=== PATIENT | male | born 1950 | race Caucasian/White ===

== ENCOUNTER 2022-09-22 10:56 | Outpatient (CLI) | payer MEDICARE, BC, SELFPAY | END 2022-09-22 10:57 | disposition home or self-care (01) | LOC: MRI 11:01 | PROVIDERS: PCP Surgery; Visit Provider Internal Medicine | DX: C61 Malignant neoplasm of prostate (principal) | CPT/HCPCS: 72195 ==

== ENCOUNTER 2023-06-23 20:17 | Outpatient (CLI) | payer MEDICARE, BC, SELFPAY | END 2023-06-23 20:18 | disposition home or self-care (01) | LOC: SLEEP 20:17 | PROVIDERS: PCP Surgery; Visit Provider Internal Medicine | DX: G47.33 Obstructive sleep apnea (adult) (pediatric) (principal) | CPT/HCPCS: 95811; A9270 ==